=== PATIENT | male | born 1970 | race Caucasian/White ===

== ENCOUNTER 2019-09-30 17:04 | Observation (INO) | payer MEDICAID ==
[2019-09-30] MEDS ORDERED: ONDANSETRON HCL IV 4 MG/2 ML VIAL IV ONE (17:13)
[2019-09-30] MEDS ORDERED: 0.9 % SODIUM CHLORIDE 1000ML 1,000 ML IV ONE ×2 (17:13→18:13)
--- NOTE | 2019-09-30 17:14 | Emergency Department Record ---
History of Present Illness - General Chief complaint: Vomiting Stated complaint: VOMITING Time Seen by Provider: 09/30/19 17:12 Source: Patient, Family Mode of Arrival: Ambulatory Limitations: No limitations - History of Present Illness Initial comments: 49 yo male presents with nausea and vomiting. He states he has been vomiting for about 24 hours. No blood in the vomit. He denies any diarrhea. He states he was admitted last week to [facility] for 2-3 days with similar intractable nausea and vomiting on 09/20/19. He states this has occurred periodically in his life. 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 He reports his last endoscopy was about 8 years ago in 2010. He does not have a current GI specialist. No blood in his stools. He states his "lactic acid" was elevated at [facility]. He was feeling much better prior to discharge from [facility]. No chest pain. No blood in the vomit or stools. His other history besides Kim's includes RA, DVT on Eliquis, GI consultation was completed on at [facility]. Impression was viral g astroenteritis at that time with noted history of Kim's with recommendation for endoscopy at some future point given the time duration since the prior endoscopy. He denies a current history of alcohol or marijuana MD complaint: Nausea, Vomiting -: Days(s) (1) Description of Vomiting: Watery Description of Diarrhea: Water Location: Other (diffuse) Radiation: None Severity: Moderate Quality: Aching, Cramping Consistency: Intermittent Improves with: None Worsens with: Eating Context: Other Associated Symptoms: Denies other symptoms - Related Data Home Medications Medication Instructions Recorded Confirmed Last Taken Folic Acid 1 mg PO DAILY 09/30/19 09/30/19 09/30/19 Lisinopril 20 mg PO DAILY 09/30/19 09/30/19 09/30/19 Methotrexate [Xatmep] 2.5 mg PO ASDIR 09/30/19 09/30/19 09/30/19 Omeprazole 40 mg PO DAILY 09/30/19 09/30/19 09/30/19 Ondansetron [Zofran Odt] 4 mg PO ASDIR 09/30/19 09/30/19 09/30/19 Pramipexole Di-HCl [Pramipexole ER] 3 mg PO ASDIR 09/30/19 09/30/1909/30/19 Sulfasalazine [Azulfidine] 500 mg PO DAILY 09/30/19 09/30/19 09/30/19 Allergies Allergy/AdvReac Type Severity Reaction Status Date / Time No Known Drug Allergies Allergy Verified 09/30/19 17:10 Review of Systems Constitutional: Reports: Malaise, Weakness. Denies: Chills, Fever Eyes: Denies: Eye discharge ENT: Denies: Congestion, Throat pain Respiratory: Denies: Cough, Dyspnea, Hemoptysis, Stridor, Wheezes Cardiovascular: Denies: Chest pain, Palpitations, Syncope Endocrine: Reports: Fatigue. Denies: Polydipsia, Polyuria Gastrointestinal: Reports: Abdominal pain, Nausea, Vomiting. Denies: Constipation, Diarrhea, Hematemesis, Hematochezia, Melena Genitourinary: Denies: Dysuria, Frequency, Hematuria Musculoskeletal: Denies: Arthralgia, Back pain, Myalgia Skin: Denies: Bruising, Change in color, Rash Neurological: Denies: Headache Psychiatric: Denies: Anxiety Hematological/Lymphatic: Denies: Easy bleeding, Easy bruising Physical Exam - General General Appearance: Alert, Oriented x3, Cooperative, No acute distress Limitations: No limitations - Head Head exam: Atraumatic, Normal inspection - Eye Eye exam: Normal appearance, PERRL. negative: Conjunctival injection, Scleral icterus - ENT ENT exam: Normal exam, Mucous membranes moist Ear exam: Normal external inspection Nasal Exam: Normal inspection Mouth exam: Normal external inspection - Neck Neck exam: Normal inspection - Respiratory Respiratory exam: Normal lung sounds bilaterally. negative: Respiratory di stress, Rhonchi, Stridor, Wheezes - Cardiovascular Cardiovascular Exam: Regular rate, Normal rhythm, Normal heart sounds Peripheral Pulses: 2+: Radial (R), Radial (L) - GI/Abdominal GI/Abdominal exam: Soft, Tenderness (mild epigastric tenderness otherwise very soft). negative: Distended, Guarding, Rebound, Rigid - Rectal Rectal exam: Deferred - exam: Deferred - Extremities Extremities exam: negative: Pedal edema, Tenderness - Back Back exam: Denies: CVA tenderness (R), CVA tenderness (L) - Neurological Neurological exam: Alert, Oriented X3 - Psychiatric Psychiatric exam: Normal affect, Normal mood. negative: Agitated, Anxious - Skin Skin exam: Dry, Intact, Normal color, Warm Course - Reevaluation(s) Reevaluation #1: 09/30/19 18:01 The CBC was reviewed No acute abnormality 09/30/19 18:29 The CMP was negative Lactic 3.4. Likely from persistent vomiting Lipase is normal Given the recent admission and return of persistent vomiting I recommend admission, supportive treatment and GI consultation 10/01 Edita Melvin NP accepted the case for admission Dr Jimenez was notified of consult for 10/01/19 Medical Decision Making - Lab Data Result diagrams: 09/30/19 17:33 09/30/19 17:33 Disposition Disposition: Admit Clinical Impression: Intractable vomiting with nausea Disposition: Still a Patient at [facility] Decision to Admit: Admit from ER Decision to Admit Date: 09/30/19 Decision to Admit Time: 18:31 Condition: (2) Stable Forms: Patient Portal Access Time of Disposition: 18:31 Quality - Quality Measures Quality Measures: N/A - Blood Pressure Screening Does Patient Have Any of the Following: No Blood Pressure Classification: Pre-Hypertensive BP Reading Systolic Measurement: 139 Diastolic Measurement: 79 Screening for High Blood Pressure: < Pre-Hypertensive BP, F/U Documented > [G8950] Pre-Hypertensive Follow-up Interventions: Referral to alternative/primary care provider.
[2019-09-30] MEDS ORDERED: PANTOPRAZOLE SODIUM IV 40 MG VIAL IVP ONE (17:25)
[2019-09-30 17:44] LABS: ABSOLUTE NEUTROPHIL COUNT 8.65; HEMATOCRIT 45.5 % (42.0-52.0); HEMOGLOBIN 14.2 gm/dl (14.0-18.0); MEAN CELL VOLUME 90.1 fl (81-97); MEAN CORPUSCULAR HEMOGLOBIN 28.1 pg (27-33); MEAN CORPUSCULAR HGB CONC 31.2 g/dl (32-36); MEAN PLATELET VOLUME 9.7 fl (7.4-10.4); PLATELET COUNT 473 K/uL (130-400); RED BLOOD COUNT 5.05 M/uL (4.40-5.70); RED CELL DISTRIBUTION WIDTH 16.7 % (11.5-14.5); WHITE BLOOD COUNT W/O DIFF 10.6 K/uL (4.2-12.2)
[2019-09-30 17:55] LABS: BLOOD UREA NITROGEN 14 mg/dL (6-20); EST GLOMERULAR FILTRATION RATE > 60 mL/min
[2019-09-30 17:56] LABS: LIPASE 60 U/L (13-60); TOTAL PROTEIN 6.1 g/dL (6.6-8.7)
[2019-09-30 17:58] LABS: GLUCOSE,RANDOM 132 mg/dL (74-109)
[2019-09-30 18:00] LABS: ALT/SGPT 12 U/L (<41)
[2019-09-30 18:01] LABS: ALBUMIN 3.7 g/dL (4.0-5.0); ALKALINE PHOSPHATASE 72 U/L (40-129); AST/SGOT 14 U/L (10.0-50.0); BILIRUBIN,DIRECT < 0.2 mg/dL (0-0.3)
[2019-09-30 18:02] LABS: PLATELET ESTIMATE NORMAL (NORMAL)
[2019-09-30] MEDS ORDERED: MORPHINE SULFATE 5 MG/ML VIAL IVP ONE (18:20)
[2019-09-30] MEDS ORDERED: PROMETHAZINE HCL 25 MG/ML VIAL IVP ONE (18:26)
[2019-09-30] MEDS ORDERED: MORPHINE SULFATE 5 MG/ML VIAL IVP PRN (20:17)
[2019-09-30] MEDS: 0.9 % SODIUM CHLORIDE 1000ML 1,000 ML IV ONE (20:26)
[2019-10-01] MEDS: 0.9 % SODIUM CHLORIDE 1000ML 1,000 ML IV ONE (03:39)
[2019-10-01] MEDS: ONDANSETRON HCL IV 4 MG/2 ML VIAL IVP PRN ×3 (05:17→15:56)
[2019-10-01 06:40] LABS: ABSOLUTE NEUTROPHIL COUNT 6.29; BASO % 0.1 % (0-6); EOS % 0.7 % (0-6); GRAN % 73.6 % (47-80); HEMATOCRIT 40.2 % (42.0-52.0); HEMOGLOBIN 12.4 gm/dl (14.0-18.0); LYMPH % 19.9 % (16-45); MEAN CELL VOLUME 90.7 fl (81-97); MEAN CORPUSCULAR HGB CONC 30.8 g/dl (32-36); MONO % 5.7 % (0-9); PLATELET COUNT 391 K/uL (130-400); RED BLOOD COUNT 4.43 M/uL (4.40-5.70); RED CELL DISTRIBUTION WIDTH 16.5 % (11.5-14.5); WHITE BLOOD COUNT W/O DIFF 8.6 K/uL (4.2-12.2)
[2019-10-01 06:44] LABS: MEAN CORPUSCULAR HEMOGLOBIN 27.9 pg (27-33)
[2019-10-01 06:55] LABS: PARTIAL THROMBOPLASTIN TIME 24.7 SECONDS (24.5-39.1); PROTHROMBIN TIME (PATIENT) 10.2 SECONDS (9.5-12.1)
--- NOTE | 2019-10-01 07:50 | History & Physical ---
History of Present Illness - Date of Service Date of Service for History & Physical: 10/01/19 - History of Present Illness Admitting Diagnosis: intractable abdominal pain, Kim's esohpagus History of Present Illness: 49 yo male presents with nausea and vomiting. He states he has been vomiting for about 24 hours. No blood in the vomit. He denies any diarrhea. He states he was admitted last week to [facility] [place] 2[place]3 days with similar intractable nausea and vomiting on 09/20/19. He states this has occurred periodically in his life. 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 He reports his last endoscopy was about 8 years ago in 2010. He does not have a current GI specialist. No blood in his stools. He states his "lactic acid" was elevated at [facility]. He was feeling much better prior to discharge from [facility]. No chest pain. No blood in the vomit or stools. PAST MEDICAL/SURGICAL HISTORY Past Surgical History hernia 2017 2 shoulder 2018 appy blood clots in his left leg from thigh to ankle PMH - Respiratory Hx Respiratory Disorders No PMH - Cardiovascular Hx Cardiovascular Disorders Yes Hx Hypertension Yes PMH - Neuro Hx Neurological Disorders No PMH - GI Hx Gastrointestinal Disorders Yes Hx Gastroesophageal Reflux Yes Comment: barretts esoph PMH - Hx Genitourinary Disorders No PMH - Endocrine Hx Endocrine Disorders No PMH - Psych Hx Psychiatric Problems No PMH - Hematology/Oncology Hx Hematology/Oncology No Disorders Laboratory Results WBC 8.6 K/uL (4.2-12.2) 10/01/19 06:20 RBC 4.43 M/uL (4.40-5.70) 10/01/19 06:20 Hgb 12.4 gm/dl (14.0-18.0) L 10/01/19 06:20 Hct 40.2 % (42.0-52.0) L 10/01/19 06:20 MCV 90.7 fl (81-97) 10/01/19 06:20 MCH 27.9 pg (27-33) 10/01/19 06:20 MCHC 30.8 g/dl (32-36) L 10/01/19 06:20 RDW 16.5 % (11.5-14.5) H 10/01/19 06:20 Plt Count 391 K/uL (130-400) 10/01/19 06:20 MPV 10.0 fl (7.4-10.4) 10/01/19 06:20 Gran % 73.6 % (47-80) 10/01/19 06:20 Neutrophils % 83.0 % (47-80) H 09/30/19 17:33 Lymphocytes % 19.9 % (16-45) 10/01/19 06:20 Monocytes % 5.7 % (0-9) 10/01/19 06:20 Eosinophils % 0.7 % (0-6) 10/01/19 06:20 Basophils % 0.1 % (0-6) 10/01/19 06:20 Absolute Neutrophils 6.29 10/01/19 06:20 Lymphocytes 14.0 % (16-45) L 09/30/19 17:33 Monocytes 3.0 % (0-9) 09/30/19 17:33 Platelet Estimate Normal (NORMAL) 09/30/19 17:33 RBC Morphology Normal 09/30/19 17:33 PT 10.2 SECONDS (9.5-12.1) 10/01/19 06:20 INR 1.0 10/01/19 06:20 APTT 24.7 SECONDS (24.5-39.1) 10/01/19 06:20 Sodium 142 mmol/L (136-145) 09/30/19 17:33 Potassium 4.3 mmol/L (3.4-4.5) 09/30/19 17:33 Chloride 99 mmol/L (98-107) 09/30/19 17:33 Carbon Dioxide 29.0 mmol/L (22-29) 09/30/19 17:33 Anion Gap 14.0 (7-16) 09/30/19 17:33 BUN 14 mg/dL (6-20) 09/30/19 17:33 Creatinine 1.0 mg/dL (0.7-1.2) 09/30/19 17:33 Estimated GFR > 60 mL/min 09/30/19 17:33 Random Glucose 132 mg/dL (74-109) H 09/30/19 17:33 Lactic Acid 3.4 mmol/L (0.5-2.2) H 09/30/19 17:33 Calcium 9.3 mg/dL (8.6-10.0) 09/30/19 17:33 Total Bilirubin 0.20 mg/dL (0.2-1.0) 09/30/19 17:33 Direct Bilirubin < 0.2 mg/dL (0-0.3) 09/30/19 17:33 AST 14 U/L (10.0-50.0) 09/30/19 17:33 ALT 12 U/L (<41) 09/30/19 17:33 Alkaline Phosphatase 72 U/L (40-129) 09/30/19 17:33 Total Protein 6.1 g/dL (6.6-8.7) L 09/30/19 17:33 Albumin 3.7 g/dL (4.0-5.0) L 09/30/19 17:33 Lipase 60 U/L (13-60) 09/30/19 17:33 Vital Signs - Last 24 Hrs Temp Pulse Pulse Resp BP BP BP 10/01/19 07:41 98.2 F 58 L 20 120/75 10/01/19 04:17 98.4 F 65 16 103/63 09/30/19 21:00 59 L 16 09/30/19 19:37 98.8 F 59 L 16 141/83 09/30/19 19:27 98.5 F 62 20 136/77 09/30/19 17:15 98 F 66 18 139/79 Pulse Ox 10/01/19 07:41 98 10/01/19 04:17 95 09/30/19 21:00 09/30/19 19:37 96 09/30/19 19:27 98 09/30/19 17:15 99 While in ED CBC and CMP unremarkable. Lactic acid elevated likely due to vomiting. Admitted for IV hydration and supportive care, GI consult in the AM 10/01/19 Travel Screening - Travel/Exposure Within Last 30 Days Have you traveled within the last 30 days?: No - Travel/Exposure Within Last Year Have you traveled outside the [place] in the last year?: No - Additonal Travel Details Have you been exposed to anyone with a communicable illness?: No - Travel Symptoms Symptom Screening: Fatigue, Vomiting, Stomach Pain Review of Systems Constitutional: Reports: Malaise, Weakness. Denies: Chills, Fever Eyes: Denies: Eye discharge ENT: Denies: Congestion, Throat pain Respiratory: Denies: Cough, Dyspnea, Hemoptysis, Stridor, Wheezes Cardiovascular: Denies: Chest pain, Palpitations, Syncope Endocrine: Reports: Fatigue. Denies: Polydipsia, Polyuria Gastrointestinal: Reports: Abdominal pain, Nausea, Vomiting. Denies: Constipation, Diarrhea, Hematemesis, Hematochezia, Melena Genitourinary: Denies: Dysuria, Frequency, Hematuria Musculoskeletal: Denies: Arthralgia, Back pain, Myalgia Skin: Denies: Bruising, Change in color, Rash Neurological: Denies: Headache Psychiatric: Denies: Anxiety Hematological/Lymphatic: Denies: Easy bleeding, Easy bruising Past Medical History - SOCIAL HISTORY Smoking Status: Current every day smoker Alcohol Use: None Drug Use: None - RESPIRATORY Hx Respiratory Disorders: No - CARDIOVASCULAR Hx Cardio Disorders: Yes Hx Hypertension: Yes - NEURO Hx Neuro Disorders: No - GI Hx GI Disorders: Yes Hx Reflux: Yes Comment:: charlie esoph - Hx Genitourinary Disorders: No - ENDOCRINE Hx Endocrine Disorders: No - PSYCH Hx Psych Problems: No - HEMATOLOGY/ONCOLOGY Hx Hematology/Oncology Disorders: No Family Medical History Any Significant Family History?: Yes Family Hx Comment (NOT TO BE USED IN PLACE OF ITEMS BELOW): grandmother had RA H&P Meds/Allergies - Allergies Allergies: Allergies Allergy/AdvReac Type Severity Reaction Status Date / Time No Known Drug Allergies Allergy Verified 09/30/19 17:10 - Home Medications Home Medications Medication Instructions Recorded Confirmed Last Taken Folic Acid 1 mg PO DAILY 09/30/19 09/30/19 09/30/19 Lisinopril 20 mg PO DAILY 09/30/19 09/30/19 09/30/19 Methotrexate [Xatmep] 2.5 mg PO ASDIR 09/30/19 09/30/19 09/30/19 Omeprazole 40 mg PO DAILY 09/30/19 09/30/19 09/30/19 Ondansetron [Zofran Odt] 4 mg PO ASDIR 09/30/19 09/30/19 09/30/19 Pramipexole Di-HCl [Pramipexole ER] 3 mg PO ASDIR 09/30/19 09/30/19 09/30/19 Sulfasalazine [Azulfidine] 500 mg PO DAILY 09/30/19 09/30/19 09/30/19 - Active Medications Active Medications: Current Medications Morphine Sulfate (Morphine Sulfate) 5 mg IVP Q4H PRN PRN Reason: PAIN - SEVERE (8-10) Stop: 10/07/19 20:18 Ondansetron HCl (Zofran) 4 mg IVP Q4H PRN PRN Reason: NAUSEA Last Admin: 10/01/19 05:17 Dose: 4 mg Documented by: Pantoprazole Sodium (Protonix Iv) 40 mg IV DAILY DRU Promethazine HCl (Phenergan) 12.5 mg IVP Q6H PRN PRN Reason: NAUSEA Physical Exam - Vital Signs Vital Signs: Vital Signs - Last 24 Hrs Temp Pulse Pulse Resp BP BP BP 10/01/19 04:17 98.4 F 65 16 103/63 09/30/19 21:00 59 L 16 09/30/19 19:37 98.8 F 59 L 16 141/83 09/30/19 19:27 98.5 F 62 20 136/77 09/30/19 17:15 98 F 66 18 139/79 Pulse Ox 10/01/19 04:17 95 09/30/19 21:00 09/30/19 19:37 96 09/30/19 19:27 98 09/30/19 17:15 99 - General General Appearance: Alert, Oriented x3, Cooperative, No acute distress Limitations: No limitations - Head Head exam: Atraumatic, Normal inspection - Eye Eye exam: Normal appearance, PERRL. negative: Conjunctival injection, Scleral icterus - ENT ENT exam: Normal exam, Mucous membranes moist Ear exam: Normal external inspection Nasal Exam: Normal inspection Mouth exam: Normal external inspection - Neck Neck exam: Normal inspection - Respiratory Respiratory exam: Normal lung sounds bilaterally. negative: Respiratory distress, Rhonchi, Stridor, Wheezes - Cardiovascular Cardiovascular Exam: Regular rate, Normal rhythm, Normal heart sounds Peripheral Pulses: 2+: Radial (R), Radial (L) - GI/Abdominal GI/Abdominal exam: Soft, Tenderness (mild epigastric tenderness otherwise very soft). negative: Distended, Guarding, Rebound, Rigid - Rectal Rectal exam: Deferred - exam: Deferred - Extremities Extremities exam: negative: Pedal edema, Tenderness - Back Back exam: Denies: CVA tenderness (R), CVA tenderness (L) - Neurological Neurological exam: Alert, Oriented X3 - Psychiatric Psychiatric exam: Normal affect, Normal mood. negative: Agitated, Anxious - Skin Skin exam: Dry, Intact, Normal color, Warm Results - Labs Result Diagrams: 10/01/19 06:20 09/30/19 17:33 Labs Last 24 Hours: Laboratory Results - last 24 hr 09/30/19 09/30/19 09/30/19 17:33 17:33 17:33 WBC 10.6 RBC 5.05 Hgb 14.2 Hct 45.5 MCV 90.1 MCH 28.1 MCHC 31.2 L RDW 16.7 H Plt Count 473 H MPV 9.7 Gran % Neutrophils % 83.0 H Lymphocytes % Monocytes % Eosinophils % Not Reportable Basophils % Not Reportable Absolute Neutrophils 8.65 Lymphocytes 14.0 L Monocytes 3.0 Platelet Estimate Normal RBC Morphology Normal PT INR APTT Sodium 142 Potassium 4.3 Chloride 99 Carbon Dioxide 29.0 Anion Gap 14.0 BUN 14 Creatinine 1.0 Estimated GFR > 60 Random Glucose 132 H Lactic Acid 3.4 H Calcium 9.3 Total Bilirubin 0.20 Direct Bilirubin < 0.2 AST 14 ALT 12 Alkaline Phosphatase 72 Total Protein 6.1 L Albumin 3.7 L Lipase 60 10/01/19 10/01/19 06:20 06:20 WBC 8.6 RBC 4.43 Hgb 12.4 L Hct 40.2 L MCV 90.7 MCH 27.9 MCHC 30.8 L RDW 16.5 H Plt Count 391 MPV 10.0 Gran % 73.6 Neutrophils % Lymphocytes % 19.9 Monocytes % 5.7 Eosinophils % 0.7 Basophils % 0.1 Absolute Neutrophils 6.29 Lymphocytes Monocytes Platelet Estimate RBC Morphology PT 10.2 INR 1.0 APTT 24.7 Sodium Potassium Chloride Carbon Dioxide Anion Gap BUN Creatinine Estimated GFR Random Glucose Lactic Acid Calcium Total Bilirubin Direct Bilirubin AST ALT Alkaline Phosphatase Total Protein Albumin Lipase VTE H&P Assessment - Risk for VTE Risk for VTE: Yes Risk Level: High Risk Assessment Date: 10/01/19 Risk Assessment Time: 10:27 VTE Orders Placed or Will Be Placed: Yes Plan - Detailed Diagnosis and Plan (1) Intractable vomiting with nausea Current Visit: Yes Status: Acute Base Code: R11.2 - NAUSEA WITH VOMITING, UNSPECIFIED Comment: 10/01/19 - Admitted to [facility] [place]19 for nausea and vomiting - Past Hx Barretts esophagus, no hematemesis or hematochezia/melena - No current GI team, last scope 8 years ago - GI consult today, EGD complete- 1 poloy removed, evidence of Barretts Esophagus. PPI. Clear liquid diet and advance as tolerated. Likely DC home in am - NPO until GI consult - IV hydration, antiemetics, PPI (2) DVT prophylaxis Current Visit: Yes Status: Acute Base Code: Z29.9 - ENCOUNTER FOR PROPH YLACTIC MEASURES, UNSPECIFIED Comment: 10/01/19 - Hx DVT, on home Eliquis - Lovenox 40mg QD until tolerating PO intake (3) Full code status Current Visit: Yes Status: Acute Base Code: Z78.9 - OTHER SPECIFIED HEALTH STATUS Comment: 10/01/19
[2019-10-01] MEDS: PANTOPRAZOLE SODIUM IV 40 MG VIAL IV SCH (10:11)
[2019-10-01] MEDS ORDERED: ENOXAPARIN 40 MG/0.4 ML SYR SQ SCH (10:30)
[2019-10-01] MEDS: 0.9 % SODIUM CHLORIDE 1000ML 1,000 ML IV PRN ×2 (12:58→21:10)
[2019-10-01] MEDS: PROMETHAZINE HCL 25 MG/ML VIAL IVP PRN ×2 (12:59→18:46)
[2019-10-02] MEDS: ONDANSETRON HCL IV 4 MG/2 ML VIAL IVP PRN ×2 (04:01→08:41)
[2019-10-02] MEDS: 0.9 % SODIUM CHLORIDE 1000ML 1,000 ML IV PRN (04:06)
[2019-10-02 06:53] LABS: ABSOLUTE NEUTROPHIL COUNT 6.16; BASO % 0.1 % (0-6); EOS % 0.6 % (0-6); GRAN % 72.5 % (47-80); HEMATOCRIT 38.8 % (42.0-52.0); HEMOGLOBIN 12.1 gm/dl (14.0-18.0); LYMPH % 17.9 % (16-45); MEAN CELL VOLUME 89.2 fl (81-97); MEAN CORPUSCULAR HEMOGLOBIN 27.8 pg (27-33); MEAN CORPUSCULAR HGB CONC 31.2 g/dl (32-36); MEAN PLATELET VOLUME 9.8 fl (7.4-10.4); MONO % 8.9 % (0-9); PLATELET COUNT 361 K/uL (130-400); RED BLOOD COUNT 4.35 M/uL (4.40-5.70); RED CELL DISTRIBUTION WIDTH 15.6 % (11.5-14.5); WHITE BLOOD COUNT W/O DIFF 8.5 K/uL (4.2-12.2)
[2019-10-02 07:13] LABS: ALB/GLOB RATIO 1.5 (1.1-1.8); ALBUMIN 2.9 g/dL (4.0-5.0); ALKALINE PHOSPHATASE 57 U/L (40-129); ALT/SGPT 10 U/L (<41); AST/SGOT 10 U/L (10.0-50.0); BLOOD UREA NITROGEN 11 mg/dL (6-20); CREATININE 0.7 mg/dL (0.7-1.2); EST GLOMERULAR FILTRATION RATE > 60 mL/min; GLUCOSE,RANDOM 102 mg/dL (74-109); TOTAL PROTEIN 4.8 g/dL (6.6-8.7)
--- NOTE | 2019-10-02 08:04 | Discharge Note ---
VTE H&P Assessment - Risk for VTE Risk for VTE: Yes Risk Level: High Risk Assessment Date: 10/01/19 Risk Assessment Time: 10:27 VTE Orders Placed or Will Be Placed: Yes Discharge Medications - Discharge Medications Prescriptions: Ondansetron [Zofran Odt] 4 mg PO Q4HR #10 tab.rapdis Apixaban [Eliquis] 5 mg PO BID #60 tablet Home Medications: Ambulatory Orders Folic Acid 1 mg PO DAILY 09/30/19 [Last Taken 09/30/19] Lisinopril 20 mg PO DAILY 09/30/19 [Last Taken 09/30/19] Methotrexate [Xatmep] 2.5 mg PO ASDIR 09/30/19 [Last Taken 09/30/19] Omeprazole 40 mg PO DAILY 09/30/19 [Last Taken 09/30/19] Pramipexole Di-HCl [Pramipexole ER] 3 mg PO ASDIR 09/30/19 [Last Taken 09/30/19] Sulfasalazine [Azulfidine] 500 mg PO DAILY 09/30/19 [Last Taken 09/30/19] Apixaban [Eliquis] 5 mg PO BID #60 tablet 10/02/19 [Last Taken Unknown] Ondansetron [Zofran Odt] 4 mg PO Q4HR #10 tab.rapdis 10/02/19 [Last Taken Unknown] Discharge Note - Date Date of Discharge Note: 10/02/19 Disposition: Home, Self-Care Condition: (2) Stable Additional Instructions: restart eliquis twice a day as before follow up with Dr Avina in 2 to 7 days continue zofran every 4 hours for vomiting clear liquids today and tomorrow start bland foods like applesauce ,rice,bananas, toast and yogurt Prescriptions: Ondansetron [Zofran Odt] 4 mg PO Q4HR #10 tab.rapdis Referrals: AUTUMN NUNEZ [Primary Care Provider] - Forms: Patient Portal Access Activity at Discharge: Increase Activity as Tolerated Diet at Discharge: Other (clear liquids)
[2019-10-02] MEDS: PANTOPRAZOLE SODIUM IV 40 MG VIAL IV SCH (08:47)
[2019-10-02] MEDS ORDERED: FENTANYL CITRATE/PF (PACU) 50 MCG/ML VIAL IV ONE (10:14)
[2019-10-02] MEDS ORDERED: PROPOFOL 10 MG/ML VIAL IV ONE (10:14)
[2019-10-02] MEDS ORDERED: LIDOCAINE 2% MDV (20MG/ML) 20ML VIAL IV ONE (10:14)
--- NOTE | 2019-10-03 09:51 | Discharge Summary ---
DATE: 10/02/2019 DISCHARGE DIAGNOSES: 1. Vomiting. 2. Gastroenteritis. 3. Gastroesophageal reflux disease. 4. History of Kim's esophagitis. 5. History of deep venous thrombosis, left leg, 2 months on Eliquis twice a day. 6. Rheumatoid arthritis. ATTENDING PHYSICIAN: Tyron Garcia DO REASON FOR HOSPITALIZATION: This patient was admitted on the previous service that I came on on the day of discharge. The patient was admitted for vomiting and nausea. Has a history of this on and off and was seen at [facility] just recently. He had a GI consult, felt to be gastroenteritis with a plan for an outpatient EGD. He came in here. Dr. Jimenez saw the patient. He did an EGD. [place] it was safe to go home with a continuation of diagnosis of gastroenteritis. SIGNIFICANT FINDINGS: His lactic acid was slightly elevated initially in the emergency department, normalized. His WBC on discharge was 8500, hemoglobin 12.1, potassium 4.1, sodium 139, BUN 11, creatinine 0.7, lactic acid 1.5, lipase was 60. GI consult with Dr. Jimenez. EGD done in the hospital. HOSPITAL COURSE: The patient gradually improved. Still vomiting, about 3-4 hours ago vomited; however, he has tolerated clear liquids. CONDITION ON DISCHARGE: Improved. DISCHARGE INSTRUCTIONS: Follow up with Dr. Parekh in 2-7 days. Continue the Eliquis twice a day for his DVT. Zofran 4 mg q.4 h. p.r.n. nausea and vomiting. Tomorrow advance diet to a bland diet. Bananas, rice, applesauce, toast, yogurt. Continue his home medications. MTDD
--- NOTE | 2019-10-03 10:10 | Operative Note ---
OPERATION: ESOPHAGOGASTRODUODENOSCOPY with multiple biopsies. INDICATION: Recurring episodes of nausea and vomiting. Recent hospitalization at [facility] for similar symptoms. It was mentioned to him that he should have an outpatient endoscopy. The patient returns to the hospital here in [place] with the same complaints of nausea and vomiting, which clinically have resolved today. Upper endoscopy is performed at this time for further evaluation. The patient does have a history of Kim's esophagus. He states that his last endoscopy was in 2010, at which time I believe he had a colonoscopy as well, he stated. ANESTHESIA: Intravenous sedation was administered by the department of anesthesiology and included Diprivan titrated to effect. PROCEDURE: Following informed consent from this alert individual, including a discussion of the risks and benefits of the procedure and an opportunity for the patient to ask questions, the patient was in the left lateral decubitus position. The Olympus [id number] video endoscope was inserted into the esophagus without resistance. The proximal esophagus had a normal appearance with normal folds and distensibility. However, at 23 cm from the incisors, there was an abrupt change to what appeared to be Kim's epithelium with 3 white-based ulcerations noted at the junction of normal squamous-appearing mucosa and the Kim's epithelium. There was no spontaneous bleeding. There was circumferential erythema. The Kim's epithelium extended down to approximately 37 cm from the incisors at which point another additional ulceration was noted, and a 2 cm hiatal hernia was also appreciated. No raised areas were noted throughout the Kim's appearing epithelium under regular light and narrow band imaging. The subdiaphragmatic stomach was entered and found to be unremarkable. The pylorus was patent. The duodenal bulb, sweep, and descending duodenum demonstrated duodenitis without ulcerations noted. The endoscope was then withdrawn back into the body of the stomach. Retroflexion accomplished following air insufflation again revealed a small hiatal hernia. The endoscope was straightened. Multiple biopsies were taken from the stomach to assess for Helicobacter pylori and check histology. The endoscope was then withdrawn back into the esophagus where biopsies were taken from the separate levels between 37 and 23 cm from the incisors. The bottles were labeled at different levels at approximately every 2 cm. After biopsies were obtained, the endoscope was then withdrawn. The patient tolerated the procedure well and was returned to the recovery area in stable condition. IMPRESSION: 1. Long-segment Kim's esophagus extending between 23 and 37 cm from the incisors. 2. Esophageal ulcerations noted at the proximal esophagus and at the distal esophageal segment as described above. 3. Small hiatal hernia. 4. Duodenitis. RECOMMENDATION: Further recommendations will be forthcoming pending results of pathology obtained today. I would like the patient to be placed on proton pump inhibitor therapy twice daily and repeat endoscopy in 8-10 weeks to assess ulcer healing and perhaps for repeat biopsies. Further recommendations will be forthcoming pending this progress. As always, thank you for allowing me to participate in the care of your patient. ALIZE
--- NOTE | 2019-10-03 10:10 | Medical Records Consult ---
DATE OF CONSULTATION: 10/01/2019 HISTORY OF PRESENT ILLNESS: The patient is a pleasant 49-year-old gentleman seen earlier today in consultation for evaluation of recurring vomiting. The patient reports that he has had recurring episodes of vomiting for approximately 24 hours prior to this admission. He was recently hospitalized at [facility] for similar symptoms and Gastroenterology consulted with him there on 09/21/2019. It was thought that he was suffering with a viral gastroenteritis since he had diarrhea initially but went home after discharge and had a recurrence of vomiting for 24 hours prior to this admission. Since in the hospital, his vomiting has stopped. He does carry a previous history of Kim's esophagus with last endoscopy in 2010. He denies use of anti- inflammatory medications. He denies use of acid blockade therapy. He denies significant pyrosis. He does have a history of alcohol but states he has not had alcohol for the past 10 years. He continues to smoke cigarettes, approximately 1/2 a package of cigarettes daily now for the past 30 years. He has a remote history of cocaine usage but nothing over the past 15 years. The patient stated his last endoscopy was approximately 5 years ago although we do not have record of this. It might have been from another physician in [place]. He has had an extensive GI workup in the past in 2010 for similar circumstances. He has an upper GI small bowel x-ray, CT angiogram, CT enterography. Laboratory all apparently fairly unremarkable. The patient denies any melena or hematochezia. He denies any hematemesis. PAST MEDICAL HISTORY: Rheumatoid arthritis, recent DVT a few months ago in his left lower extremity for which he is now receiving Eliquis. He must also suffer with hypertension, as he was taking lisinopril at home. Methadone for his arthritis. Zolpidem is also listed as a home medication, just 1 tablet 500 mg daily. SOCIAL HISTORY: As outlined above. REVIEW OF SYSTEMS: A review of systems completed 09/30/2019 in the emergency department was unremarkable except for the chief complaint which included the nausea and vomiting. There is no history of diarrhea, constipation, melena, hematochezia, or hematemesis. PHYSICAL EXAMINATION: GENERAL: He is alert and oriented. NECK: Supple. HEART: Regular. LUNGS: Clear. ABDOMEN: Somewhat tender in the epigastrium. There is no rebound, rigidity, or guarding. EXTREMITIES: There is minimal edema in the left lower extremity. NEUROMUSCULAR: Seems to be grossly unremarkable. LABORATORY DATA: On admission, white blood cell count 10.6, hemoglobin 14.2, hematocrit 45.5, platelet count 473,000. BUN 14, creatinine 1.0, glucose 132. Aminotransferase levels and bilirubin were normal. Lactic acid level on 09/30/2019 was elevated at 3.4. RADIOGRAPHIC DATA: Most recent CT scan obtained while in the hospital at [facility] last week revealed hiatal hernia with multiple hepatic cysts and a nonobstructing left renal calculus. IMPRESSION AND PLAN: The patient is suffering with recurring episodes of nausea and vomiting dating back almost 10 years. He states that he might have episodes perhaps once per month. He does have a previous history of Kim's esophagus noted endoscopically and is due for a recheck surveillance examination. Clinically, he has improved since being in the hospital today. My recommendation is that we proceed with upper endoscopy. I would continue acid blockade therapy. Further recommendations forthcoming pending results of endoscopic evaluation. Thank you for allowing me to participate in his care. I will update you with my findings. ALIZE
== END 2019-10-02 10:15 | disposition home or self-care (01) ==
LOC: ER 17:04 → MEDSURG 19:29
PROVIDERS: ADMIT Internal Medicine; ATTEND Internal Medicine
PROC: 0DJ08ZZ Inspection of Upper Intestinal Tract, Via Natural or Artificial Opening Endoscopic (ICD-10-PCS; principal; 2019-09-30)
DX: R11.15 Cyclical vomiting syndrome unrelated to migraine (principal); K22.10 Ulcer of esophagus without bleeding; K52.9 Noninfective gastroenteritis and colitis, unspecified; I10 Essential (primary) hypertension; K21.9 Gastro-esophageal reflux disease without esophagitis; M06.9 Rheumatoid arthritis, unspecified; Z86.718 Personal history of other venous thrombosis and embolism; F17.210 Nicotine dependence, cigarettes, uncomplicated; Z79.01 Long term (current) use of anticoagulants; Z86.14 Personal history of Methicillin resistant Staphylococcus aureus infection
CPT/HCPCS: 80048; 80053; 80076; 83605; 83690; 85025; 85027; 85610; 85730; 96360; 96361; 96374; 96375; 99217; 99220; 99285; C9113; J1650; J2405; J2550; J7030

== ENCOUNTER 2019-11-26 11:31 | Day surgery (SDC) | payer MEDICAID ==
[2019-11-26] MEDS ORDERED: PROPOFOL 10 MG/ML VIAL IV ONE (11:32)
[2019-11-26] MEDS ORDERED: LIDOCAINE 2% MDV (20MG/ML) 20ML VIAL IV ONE (11:32)
[2019-11-26] MEDS ORDERED: FENTANYL PF 100MCG/2ML VIAL IV ONE (11:32)
--- NOTE | 2019-11-26 17:30 | Operative Note ---
OPERATION: ESOPHAGOGASTRODUODENOSCOPY. INDICATION: Recent finding of long-segment Kim's esophagus with multiple esophageal ulcerations throughout the esophagus. The patient returns at this time to evaluate healing. Biopsies from throughout the Kim's epithelium 2 months ago were negative for any dysplasia. Clinically his nausea and vomiting have completely resolved. His reflux symptoms have resolved. He feels quite well. He did take Eliquis this morning. ANESTHESIA: Intravenous sedation was administered by the department of anesthesiology and included Diprivan titrated to effect. PROCEDURE: Following informed consent from this alert individual, including a discussion of the risks and benefits of the procedure and an opportunity for the patient to ask questions, the patient was in the left lateral decubitus position. The Olympus [id number] video endoscope was inserted into the esophagus without resistance. The most proximal esophagus had a normal appearance with normal folds and distensibility. At approximately 23 cm from the incisors, there was a change to the Kim's-appearing epithelium. The Kim's epithelium appeared smooth to the level of a small hiatal hernia at approximately 37 cm from the incisors. There were no raised areas, ulcerations, or erosions. There was a small 2 cm hiatal hernia noted, and the subdiaphragmatic stomach was then entered and found to be completely unremarkable. Pylorus was patent. The duodenal bulb, sweep and descending duodenum were examined in a serial fashion and found to be normal as well. The endoscope was then drawn back in the body of the stomach. Retroflexion accomplished following air insufflation failed to demonstrate any additional changes. The endoscope was then straightened and withdrawn back through the small hiatal hernia and the esophagus. Again esophageal Kim's-appearing epithelium was noted between 23-37 cm from the incisors without other mucosal changes appreciated. The ulcerations had completely healed. Upon withdrawal through the posterior pharynx, the vocal cords were visualized. There were some changes noted involving the vocal cords with edematous-appearing slightly irregular mucosa. The patient tolerated the procedure well and was returned to the recovery area in stable condition. IMPRESSION: 1. Completely healed esophageal ulcerations. 2. Kim's-appearing epithelium from 23-37 cm from the incisors. No biopsies were taken again. The patient took his Eliquis this morning. His biopsies from the most recent examination approximately 2 months ago were negative for any dysplasia. 3. Small 2 cm hiatal hernia. 4. Some irregularity involving the vocal cords. RECOMMENDATION: The patient was advised to talk to his primary care physician about ENT referral to further evaluate the vocal cord changes noted above. I would recommend a recheck endoscopy in approximately 1 year's time. Followup will be with Dr. Alyssa Parekh. As always, thank you for allowing me to participate in the care of your patient. ALIZE
== END 2019-11-26 14:05 | disposition home or self-care (01) ==
LOC: HOP 11:31
PROVIDERS: ATTEND Internal Medicine Gastroenterology
DX: K21.9 Gastro-esophageal reflux disease without esophagitis (principal); K22.70 Barrett's esophagus without dysplasia; K44.9 Diaphragmatic hernia without obstruction or gangrene; J38.4 Edema of larynx